=== PATIENT | male | born 1960 | race Hispanic/Latino ===

== ENCOUNTER → 2023-01-02 | Outpatient (CLI) | payer OTHER ==
[2023-01-02 14:43] LABS: BASOPHILS % (AUTO) 0.6 % (0.0-5.0); EOSINOPHILS % (AUTO) 6.6 % (0.0-8.0); HEMATOCRIT 43.3 % (42-54); LYMPHOCYTES % (AUTO) 28.3 % (21.0-51.0); MEAN CORPUSCULAR HEMOGLOBIN 26.8 pg (27.0-33.0); MEAN CORPUSCULAR HGB CONC 31.9 g/dL (32.0-36.0); MEAN CORPUSCULAR VOLUME 84.1 fL (79-99); MONOCYTES % (AUTO) 6.1 % (3.0-13.0); NEUTROPHILS % (AUTO) 58.2 % (40.0-77.0); PLATELET COUNT (AUTO) 187 K/uL (130-400); RED BLOOD CELL COUNT(AUTO) 5.15 MIL/uL (4.50-6.20); RED CELL DISTRIBUTION WIDTH 14.2 % (11.0-15.5); WHITE BLOOD COUNT (AUTO) 8.1 K/uL (4.8-10.8)
[2023-01-02 14:55] LABS: POTASSIUM 4.1 mmol/L (3.5-5.1)
== END | disposition home or self-care (01) ==
LOC: LAB 14:10
PROVIDERS: ATTEND Urology
DX: C61 Malignant neoplasm of prostate (principal); R97.20 Elevated prostate specific antigen [PSA]; D40.0 Neoplasm of uncertain behavior of prostate
CPT/HCPCS: 36415; 80048; 85025

== ENCOUNTER → 2023-01-03 | Outpatient (CLI) | payer OTHER | END | disposition home or self-care (01) | LOC: RAH 11:13 → EDUNIT# 11:30 | PROVIDERS: ATTEND Urology | DX: C61 Malignant neoplasm of prostate (principal); N50.0 Atrophy of testis; R97.20 Elevated prostate specific antigen [PSA]; D40.0 Neoplasm of uncertain behavior of prostate | CPT/HCPCS: 78306; 76870; A9503 ==

== ENCOUNTER → 2023-01-09 | Outpatient (CLI) | payer OTHER | END | disposition home or self-care (01) | LOC: SHCH 15:25 → EDUNIT# 15:40 | PROVIDERS: ATTEND Student in an Organized Health Care Education/Training Program | DX: I73.9 Peripheral vascular disease, unspecified (principal) | CPT/HCPCS: 93925 ==

== ENCOUNTER → 2023-01-14 | Outpatient (CLI) | payer OTHER ==
[~2023-01-14] MED LIST: IOHEXOL 350 MG/ML 100ML INFUS..BTL IV ONE
== END | disposition home or self-care (01) ==
LOC: EDUNIT# 01-07 08:00 → RAH 09:37
PROVIDERS: ATTEND Urology
DX: C61 Malignant neoplasm of prostate (principal); R97.20 Elevated prostate specific antigen [PSA]; M89.8X8 Other specified disorders of bone, other site; N50.0 Atrophy of testis; R59.0 Localized enlarged lymph nodes; K44.9 Diaphragmatic hernia without obstruction or gangrene; K57.90 Diverticulosis of intestine, part unspecified, without perforation or abscess without bleeding; N32.89 Other specified disorders of bladder; I25.10 Atherosclerotic heart disease of native coronary artery without angina pectoris; M47.815 Spondylosis without myelopathy or radiculopathy, thoracolumbar region
CPT/HCPCS: 74178; Q9967

== ENCOUNTER → 2023-01-15 | Outpatient (CLI) | payer OTHER ==
[2023-01-15 12:55] LABS: CREATININE 0.9 mg/dL (0.5-1.5); POTASSIUM 3.9 mmol/L (3.5-5.1)
== END | disposition home or self-care (01) ==
LOC: LAB 11:54
PROVIDERS: ATTEND Student in an Organized Health Care Education/Training Program
DX: I10 Essential (primary) hypertension (principal)
CPT/HCPCS: 36415; 80048

== ENCOUNTER → 2023-01-17 | Outpatient (CLI) | payer OTHER ==
[~2023-01-17] MED LIST changes: +METOPROLOL TARTRATE 1 MG/ML 5ML VIAL IV ONE
== END | disposition home or self-care (01) ==
LOC: RAH 09:16
PROVIDERS: ATTEND Student in an Organized Health Care Education/Training Program
DX: I50.9 Heart failure, unspecified (principal); M47.815 Spondylosis without myelopathy or radiculopathy, thoracolumbar region
CPT/HCPCS: 75574; J3490 ×2; Q9967 ×2

== ENCOUNTER 2023-04-16 09:11 | Observation (INO) | payer OTHER ==
[~2023-04-16] VITALS: Ht 170.2 cm; Wt 101.8 kg
[2023-04-16] MEDS ORDERED: ONDANSETRON 4MG INJ ONE (10:55)
[2023-04-16] MEDS ORDERED: MORPHINE 4 MG SYG ONE (10:55)
[2023-04-16 10:56] LABS: BASOPHILS % (AUTO) 0.6 % (0.0-5.0); EOSINOPHILS % (AUTO) 0.4 % (0.0-8.0); LYMPHOCYTES % (AUTO) 19.5 % (21.0-51.0); MEAN CORPUSCULAR HEMOGLOBIN 25.4 pg (27.0-33.0); MEAN CORPUSCULAR HGB CONC 31.6 g/dL (32.0-36.0); MEAN CORPUSCULAR VOLUME 80.5 fL (79-99); MONOCYTES % (AUTO) 8.6 % (3.0-13.0); PLATELET COUNT (AUTO) 195 K/uL (130-400); RED BLOOD CELL COUNT(AUTO) 4.72 MIL/uL (4.50-6.20); RED CELL DISTRIBUTION WIDTH 18.6 % (11.0-15.5); WHITE BLOOD COUNT (AUTO) 10.5 K/uL (4.8-10.8)
[2023-04-16] MEDS ORDERED: MORPHINE 4 MG SYG IVP ONE (11:00)
[2023-04-16] MEDS ORDERED: ONDANSETRON 4MG INJ IVP ONE (11:00)
[2023-04-16 11:02] LABS: INR 0.93 (0.85-1.15); PROTHROMBIN TIME 10.1 SEC (9.6-11.6)
[2023-04-16 11:04] LABS: PARTIAL THROMBOPLASTIN TIME 28.5 SEC (26.3-35.5)
[2023-04-16 11:05] LABS: CREATININE 0.8 mg/dL (0.5-1.5); POTASSIUM 4.2 mmol/L (3.5-5.1)
[2023-04-16 11:07] LABS: ALBUMIN 3.3 g/dL (3.5-5.0); TOTAL PROTEIN, SERUM 7.1 g/dL (6.0-8.3)
[2023-04-16] MEDS ORDERED: IOHEXOL 350 MG/ML 100ML INFUS..BTL IV ONE (12:42)
[2023-04-16] MEDS ORDERED: ENOXAPARIN SODIUM 30 MG/0.3 ML SQ ONE (14:00)
[2023-04-16] MEDS ORDERED: ENOXAPARIN SODIUM 100 MG/1 ML SQ ONE (14:23)
[2023-04-16] MEDS ORDERED: MAG/ALUM/SIMETH 30 ML UDCUP PO PRN (14:30)
[2023-04-16] MEDS ORDERED: ONDANSETRON 4MG INJ IV PRN (14:30)
[2023-04-16] MEDS ORDERED: LACTULOSE 20 GM/30 ML UDCUP PO PRN (14:30)
[2023-04-16] MEDS ORDERED: ACETAMINOPHEN 325 MG TAB PO PRN ×2 (14:30)
[2023-04-16] MEDS ORDERED: COLC0.6T73 PO ×2 (14:37)
[2023-04-16] MEDS ORDERED: ACET-2079 PO ×2 (14:37)
[2023-04-16] MEDS ORDERED: DARO300T PO ×2 (14:37)
[2023-04-16] MEDS ORDERED: METO-408 PO ×2 (14:37)
[2023-04-16] MEDS ORDERED: DEXA4TAB PO ×2 (14:37)
[2023-04-16] MEDS ORDERED: SACU1TAB PO ×2 (14:37)
[2023-04-16] MEDS ORDERED: TRAM50TA4 PO ×2 (14:37)
[2023-04-16] MEDS ORDERED: EMPA25TA PO ×2 (14:37)
[2023-04-16] MEDS ORDERED: ATOR40TA71 PO ×2 (14:37)
[2023-04-16] MEDS ORDERED: SERT-438 PO ×2 (14:37)
[2023-04-16] MEDS ORDERED: GLUCAGON 1MG KIT 1 MG ML IM PRN (15:00)
[2023-04-16] MEDS ORDERED: MAGNESIUM 2GM PREMIX 50ML 50 ML IV PRN (15:00)
[2023-04-16] MEDS ORDERED: DEXTROSE 50%-WATER 50 ML DISP.SYRIN IV PRN (15:00)
[2023-04-16] MEDS ORDERED: POTASSIUM CHLORIDE 20MEQ/100ML 100 ML IV PRN (15:00)
[2023-04-16] MEDS ORDERED: POTASSIUM CHLORIDE 10% ELIXIR 20 MEQ/15 ML UDCUP PO PRN (15:00)
[2023-04-16 15:32] LABS: % IRON SATURATION 15.3 % (30-44)
[2023-04-16 15:36] LABS: HEMOGLOBIN A1C 9.3 % (4.0-6.0)
[2023-04-16] MEDS: INSULIN HUMULIN R 100 UNIT/ML 3ML SQ SCH ×2 (17:23→21:00)
[2023-04-16] MEDS ORDERED: MORPHINE 2 MG SYG IVP PRN (18:00)
[2023-04-16] MEDS: MORPHINE 4 MG SYG IVP PRN ×2 (18:01→23:09)
[2023-04-16] MEDS: HYDROCODONE/ACETAMINOPHEN 10/325 MG TAB PO PRN (23:09)
[2023-04-16] MEDS: FAMOTIDINE 20MG TAB PO SCH (23:10)
[2023-04-16 23:45] VITALS: BP 124/68
[2023-04-17] MEDS: HYDROCODONE/ACETAMINOPHEN 10/325 MG TAB PO PRN ×2 (04:10→15:58)
[2023-04-17 04:15] VITALS: BP 103/74
[2023-04-17 05:29] LABS: MEAN CORPUSCULAR HEMOGLOBIN 25.5 pg (27.0-33.0); MEAN CORPUSCULAR HGB CONC 31.7 g/dL (32.0-36.0); MEAN CORPUSCULAR VOLUME 80.5 fL (79-99); RED BLOOD CELL COUNT(AUTO) 4.35 MIL/uL (4.50-6.20); RED CELL DISTRIBUTION WIDTH 18.9 % (11.0-15.5); WHITE BLOOD COUNT (AUTO) 10.9 K/uL (4.8-10.8)
[2023-04-17 05:42] LABS: CREATININE 0.8 mg/dL (0.5-1.5); MAGNESIUM 1.8 mg/dL (1.80-2.40); POTASSIUM 3.6 mmol/L (3.5-5.1)
[2023-04-17] MEDS: INSULIN HUMULIN R 100 UNIT/ML 3ML SQ SCH ×2 (06:55→12:20)
[2023-04-17 08:00] VITALS: BP 110/70
[2023-04-17] MEDS: FAMOTIDINE 20MG TAB PO SCH (08:55)
[2023-04-17] MEDS: KCL 20 MEQ ERTAB PO PRN ×2 (08:55→12:18)
[2023-04-17] MEDS ORDERED: APIXABAN 5 MG TABLET PO SCH (09:00)
[2023-04-17 12:00] VITALS: BP 104/69
[2023-04-17] MEDS ORDERED: DEXAMETHASONE 4 MG TAB PO SCH (15:00)
[2023-04-17] MEDS ORDERED: APIX5TAB PO ×2 (15:04)
[2023-04-17 16:00] VITALS: BP 128/78
[2023-04-17] MEDS ORDERED: ATORVASTATIN 40 MG TABLET PO SCH (21:00)
[2023-04-17] MEDS ORDERED: SACUBITRIL/VALSARTAN 1 EACH TABLET PO SCH (21:00)
[2023-04-17] MEDS ORDERED: COLCHICINE 0.6 MG TABLET PO SCH (21:00)
[2023-04-17] MEDS ORDERED: DAROLUTAMIDE 300 MG PO SCH (21:00)
[2023-04-18] MEDS ORDERED: SERTRALINE HCL 25 MG PO SCH (09:00)
[2023-04-18] MEDS ORDERED: ATORVASTATIN 40 MG TABLET PO SCH (09:00)
[2023-04-18] MEDS ORDERED: METOPROLOL SUCCINATE 25 MG TAB.SR.24H PO SCH (09:00)
[2023-04-18] MEDS ORDERED: SERTRALINE HCL 50 MG TABLET PO SCH (09:00)
[2023-04-24] MEDS ORDERED: DOCU-116 PO (16:34)
== END 2023-04-17 17:50 | disposition home or self-care (01) ==
LOC: EDH 09:11 → INTOOBSV 14:13 → EDHIP 14:13 → 3CH 23:45
PROVIDERS: ADMIT Hospitalist; ATTEND Hospitalist
DX: I26.99 Other pulmonary embolism without acute cor pulmonale (principal); E87.1 Hypo-osmolality and hyponatremia; D50.9 Iron deficiency anemia, unspecified; C61 Malignant neoplasm of prostate; C79.9 Secondary malignant neoplasm of unspecified site; C95.90 Leukemia, unspecified not having achieved remission; E11.9 Type 2 diabetes mellitus without complications; E78.5 Hyperlipidemia, unspecified; M10.9 Gout, unspecified; E66.01 Morbid (severe) obesity due to excess calories; E78.00 Pure hypercholesterolemia, unspecified; G47.00 Insomnia, unspecified; I10 Essential (primary) hypertension; K59.00 Constipation, unspecified; Z79.01 Long term (current) use of anticoagulants; Z85.46 Personal history of malignant neoplasm of prostate; Z79.899 Other long term (current) drug therapy
CPT/HCPCS: 96376; 96372; 96375; 99285; 83036; 83540; 83550; 80053; 85025; 85378; 85610; 85730; 82948 ×3; 36415 ×2; 73552; 71270; 96365; 96366; 83735; 80048; 85027; 93306; 93356; 93970; J1815 ×3; G0378 ×25; J2405; J2270 ×3; J1650; Q9967; J3475; J8540

== ENCOUNTER 2023-04-19 11:39 | Emergency (ER) | payer OTHER ==
[~2023-04-19] VITALS: Ht 167.6 cm; Wt 99.3 kg
[~2023-04-19 11:39] MED LIST changes: +ACET-2079 PO; +APIX5TAB PO; +ATOR40TA71 PO; +COLC0.6T73 PO; +DARO300T PO; +DEXA4TAB PO; +EMPA25TA PO; -IOHEXOL 350 MG/ML 100ML INFUS..BTL IV ONE; +METO-408 PO; -METOPROLOL TARTRATE 1 MG/ML 5ML VIAL IV ONE; +SACU1TAB PO; +SERT-438 PO; +TRAM50TA4 PO
[2023-04-19] MEDS ORDERED: ONDANSETRON 4MG INJ IVP ONE (12:30)
[2023-04-19] MEDS ORDERED: MORPHINE 2 MG SYG IVP ONE (12:30)
[2023-04-19] MEDS ORDERED: KETOROLAC 15MG/ML VIAL (15MG/ML) IV ONE (12:30)
[2023-04-19 12:32] LABS: BASOPHILS % (AUTO) 0.4 % (0.0-5.0); EOSINOPHILS % (AUTO) 0.1 % (0.0-8.0); HEMATOCRIT 35.7 % (42-54); LYMPHOCYTES % (AUTO) 21.6 % (21.0-51.0); MEAN CORPUSCULAR HEMOGLOBIN 25.2 pg (27.0-33.0); MEAN CORPUSCULAR HGB CONC 31.9 g/dL (32.0-36.0); MEAN CORPUSCULAR VOLUME 78.8 fL (79-99); NEUTROPHILS % (AUTO) 74.5 % (40.0-77.0); PLATELET COUNT (AUTO) 191 K/uL (130-400); RED BLOOD CELL COUNT(AUTO) 4.53 MIL/uL (4.50-6.20); RED CELL DISTRIBUTION WIDTH 18.6 % (11.0-15.5)
[2023-04-19 13:05] LABS: CREATININE 0.7 mg/dL (0.5-1.5); POTASSIUM 3.9 mmol/L (3.5-5.1)
[2023-04-19 13:09] LABS: ALBUMIN 2.9 g/dL (3.5-5.0); TOTAL PROTEIN, SERUM 6.7 g/dL (6.0-8.3)
[2023-04-19 15:16] VITALS: BP 119/67
[2023-04-24] MEDS ORDERED: DOCU-116 PO (16:34)
== END 2023-04-19 15:51 | disposition home or self-care (01) ==
LOC: EDH 11:39
DX: M79.604 Pain in right leg (principal); E11.9 Type 2 diabetes mellitus without complications; E78.00 Pure hypercholesterolemia, unspecified; Z79.84 Long term (current) use of oral hypoglycemic drugs; Z79.899 Other long term (current) drug therapy; Z85.46 Personal history of malignant neoplasm of prostate; Z98.890 Other specified postprocedural states
CPT/HCPCS: 99284; 96374; 96375; 80053; 85025; 36415; J2270; J2405; J1885

== ENCOUNTER → 2024-08-17 | Outpatient (CLI) | payer OTHER ==
[~2024-08-17] MED LIST changes: -ACET-2079 PO; -DEXA4TAB PO; +DOCU-116 PO; -TRAM50TA4 PO
== END | disposition home or self-care (01) ==
LOC: SHCH 08:35
PROVIDERS: ATTEND Student in an Organized Health Care Education/Training Program
DX: R06.00 Dyspnea, unspecified (principal)
CPT/HCPCS: 93306